=== PATIENT | male | born 1985 | race Caucasian/White ===

== ENCOUNTER 2018-01-31 07:28 | Emergency (ER) | payer OTHER | END 2018-01-31 08:11 | disposition left against medical advice (07) | LOC: ED 07:28 | DX: Z53.21 Procedure and treatment not carried out due to patient leaving prior to being seen by health care provider (principal) ==

== ENCOUNTER 2018-05-06 09:38 | Emergency (ER) | payer SELFPAY ==
[2018-05-06 09:44] VITALS: BP 98/51; Ht 188 cm
== END 2018-05-06 11:36 | disposition home or self-care (01) ==
LOC: ED 09:38
DX: H57.12 Ocular pain, left eye (principal)

== ENCOUNTER 2018-06-13 08:35 | Emergency (ER) | payer SELFPAY ==
[~2018-06-13] VITALS: Ht 188 cm; Wt 117.0 kg
[2018-06-13 08:40] VITALS: Ht 188 cm; Wt 117.0 kg
[2018-06-13 09:05] LABS: BASOPHIL % 0.3 % (0-2); PLATELET COUNT 212 x10^3mcL (130-400); RED CELL DISTRIBUTION WIDTH 12.4 % (11.5-14.5)
[2018-06-13 09:23] LABS: CALCIUM 8.3 mg/dL (8.5-10.1); CARBON DIOXIDE 27.6 mmol/L (21-32); CHLORIDE SERUM 105 mmol/L (98-107); CREATININE SERUM 1.1 mg/dL (0.7-1.3); GFR1 > 60 mL/min; GLUCOSE SERUM 96 mg/dL (74-106); POTASSIUM SERUM 4.2 mmol/L (3.5-5.1); SODIUM SERUM 139 mmol/L (136-145)
[2018-06-13 09:27] LABS: ALBUMIN 4.1 g/dL (3.4-5.0); ALKALINE PHOSPHATASE 75 U/L (46-116); ALT/SGPT 69 U/L (16-63); AST/SGOT 29 U/L (15-37); BILIRUBIN TOTAL 0.46 mg/dL (0.20-1.00); LIPASE 309 IU/L (73-393); TOTAL PROTEIN, SERUM 7.3 g/dL (6.4-8.2)
[2018-06-13 10:31] VITALS: BP 125/78
== END 2018-06-13 10:31 | disposition home or self-care (01) ==
LOC: ED 08:35
PROVIDERS: Emergency Medicine
DX: R10.33 Periumbilical pain (principal)
CPT/HCPCS: 36415